=== PATIENT | female | born 1995 | race African-American/Black ===

== ENCOUNTER 2017-04-01 20:02 | Emergency (ER) | payer OTHER ==
[~2017-04-01] VITALS: Ht 172.7 cm; Wt 60.5 kg
[~2017-04-01 20:02] MED LIST: PENI500T PO; Z.0.BCPILL PO
[2017-04-01 20:04] VITALS: BP 113/75; PULSE 103; RESP 16; TEMP 99.8
[2017-04-01 20:17] VITALS: BP 127/73; PULSE 91; RESP 18; O2SAT 100
[2017-04-01] MEDS ORDERED: SODIUM CHLOR 0.9% 1000 ML INJ 1,000 ML IV SCH (20:22)
--- NOTE | 2017-04-01 20:29 | PD ---
HPI Chief Complaint: Abdominal Pain Time Seen by Provider: 20:25 Travel History International Travel<30 days: No Contact w/Intl Traveler<30days: No Traveled to known affect area: No History of Present Illness HPI 21-year-old female presents to the emergency department for evaluation of lower abdominal pain that started yesterday. She states that she has not had pain like this before. She denies any abnormal vaginal discharge. She denies risk of STDs. She denies urinary symptoms. Patient denies any previous abdominal surgeries. She has no chronic medical problems and takes no prescribed medications. Patient denies reporting last menstrual cycle ended 2 days ago. No chest pain or shortness of breath. No nausea, vomiting, diarrhea , constipation. Patient reports 1 sexual partner and has been with him for "a long time". PFSH Past Medical History Hx Anticoagulant Therapy: No Cardiovascular Problems: No Chemotherapy: No Cerebrovascular Accident: No Diabetes: No Respiratory: No ?: Not LMP: 03/30/2017 Past Surgical History Hysterectomy: No Social History Alcohol Use: No Tobacco Use: No Substance Use: No Allergies-Medications (Allergen,Severity, Reaction): Coded Allergies: No Known Allergies (Unverified , 04/01/17) Reported Meds & Prescriptions Reported Meds & Active Scripts Active Macrobid (Nitrofurantoin Monohydrate Macrocrystals) 100 Mg Capsule 100 Mg PO BID 7 Days Review of Systems Except as stated in HPI: all other systems reviewed are Neg Physical Exam Narrative GENERAL: Well-nourished, well-developed female patient, temp of 99.8. SKIN: Focused skin assessment warm/dry. HEAD: Normocephalic. Atraumatic. EYES: No scleral icterus. No injection or drainage. NECK: Supple, trachea midline. No JVD or lymphadenopathy. CARDIOVASCULAR: Regular rate and rhythm without murmurs, gallops, or rubs. RESPIRATORY: Breath sounds equal bilaterally. No accessory muscle use. Lungs sounds are clear to auscultation. GASTROINTESTINAL: Abdomen soft and nondistended. Patient has diffuse tenderness to palpation, worse in the right lower quadrant.. MUSCULOSKELETAL: No cyanosis, or edema. BACK: Nontender without obvious deformity. No CVA tenderness. GENITOURINARY: Normal external genitalia without lesions or erythema. Vaginal vault without blood, but with white drainage noted. Cervical os was closed without drainage. No cervical motion tenderness. Uterus nontender and nonenlarged. Bilateral adnexa nontender without masses. Exam was done with HERMINIO Cruz at bedside. Data Data Last Documented VS Vital Signs Date Time Temp Pulse Resp B/P Pulse Ox O2 Delivery O2 Flow Rate FiO2 04/01/17 20:33 100 Room Air 04/01/17 20:17 91 18 127/73 04/01/17 20:04 99.8 Orders Morphine Inj (Morphine Inj) (04/01/17 20:30) Complete Blood Count With Diff (04/01/17 20:22) Comprehensive Metabolic Panel (04/01/17 20:22) Lipase (04/01/17 20:22) Urinalysis - C+S If Indicated (04/01/17 20:22) Ct Abd/Pel W Iv Contrast(Rout) (04/01/17 20:22) Iv Access Insert/Monitor (04/01/17 20:22) Ecg Monitoring (04/01/17 20:22) Oximetry (04/01/17 20:22) Ondansetron Inj (Zofran Inj) (04/01/17 20:30) Sodium Chlor 0.9% 1000 Ml Inj (Ns 1000 M (04/01/17 20:22) Sodium Chloride 0.9% Flush (Ns Flush) (04/01/17 20:30) Ed Urine Pregnancytest Poc (04/01/17 20:22) Oral Contrast - Adult (04/01/17 20:22) Gc And Chlamydia Pcr (04/01/17 20:22) Wet Prep Profile (04/01/17 20:22) Diatrizoate Liq ( Gastroview Liq) (04/01/17 20:35) Urine Culture (04/01/17 20:31) Blood Culture (04/01/17 21:04) Lactic Acid Sepsis Protocol (04/01/17 21:04) Piperacil-Tazo 4.5 Gm Premix (Zosyn 4.5 (04/01/17 21:15) Iohexol 350 Inj (Omnipaque 350 Inj) (04/01/17 22:10) Azithromycin Powd Pack (Zithromax Powd P (04/01/17 22:45) Rocephin 250mg Vial Im X 1 (04/01/17 22:45) Lidocaine 1% Inj (50 Ml) (Xylocaine 1% I (04/01/17 22:45) Labs Laboratory Tests Test 04/01/17 04/01/17 20:31 21:15 White Blood Count 18.2 TH/MM3 Red Blood Count 4.41 MIL/MM3 Hemoglobin 12.8 GM/DL Hematocrit 37.9 % Mean Corpuscular Volume 85.9 FL Mean Corpuscular Hemoglobin 29.0 PG Mean Corpuscular Hemoglobin 33.7 % Concent Red Cell Distribution Width 13.7 % Platelet Count 272 TH/MM3 Mean Platelet Volume 7.2 FL Neutrophils (%) (Auto) 84.7 % Lymphocytes (%) (Auto) 8.0 % Monocytes (%) (Auto) 6.7 % Eosinophils (%) (Auto) 0.3 % Basophils (%) (Auto) 0.3 % Neutrophils # (Auto) 15.4 TH/MM3 Lymphocytes # (Auto) 1.5 TH/MM3 Monocytes # (Auto) 1.2 TH/MM3 Eosinophils # (Auto) 0.1 TH/MM3 Basophils # (Auto) 0.0 TH/MM3 CBC Comment DIFF FINAL Differential Comment Urine Color YELLOW Urine Turbidity HAZY Urine pH 6.5 Urine Specific [place] 1.026 Urine Protein 30 mg/dL Urine Glucose (UA) NEG mg/dL Urine Ketones NEG mg/dL Urine Occult Blood MOD Urine Nitrite NEG Urine Bilirubin NEG Urine Urobilinogen 4.0 MG/DL Urine Leukocyte Esterase LARGE Urine RBC 10 /hpf Urine WBC /hpf Urine Squamous Epithelial 18 /hpf Cells Urine Bacteria MOD /hpf Urine Mucus MANY /lpf Microscopic Urinalysis Comment CULTURE INDICATED Sodium Level 135 MEQ/L Potassium Level 3.7 MEQ/L Chloride Level 99 MEQ/L Carbon Dioxide Level 27.3 MEQ/L Anion Gap 9 MEQ/L Blood Urea Nitrogen 11 MG/DL Creatinine 1.03 MG/DL Estimat Glomerular Filtration 84 ML/MIN Rate Random Glucose 98 MG/DL Calcium Level 9.0 MG/DL Total Bilirubin 0.7 MG/DL Aspartate Amino Transf 16 U/L (AST/SGOT) Alanine Aminotransferase 16 U/L (ALT/SGPT) Alkaline Phosphatase 94 U/L Total Protein 8.4 GM/DL Albumin 3.8 GM/DL Lipase 132 U/L Clue Cells (Wet Prep) NONE SEEN Vaginal Trichomonas (Wet Prep) NONE SEEN Vaginal Yeast (Wet Prep) NONE SEEN Lactic Acid Level 1.6 mmol/L MDM Medical Decision Making Medical Screen Exam Complete: Yes Emergency Medical Condition: Yes Medical Record Reviewed: Yes Interpretation(s) CT abdomen/pelvis - CONCLUSION: 1. No acute intra-abdominal process. 2. Mild scoliosis of the lumbar spine. Differential Diagnosis Appendicitis versus TOA versus UTI versus pyelonephritis versus diverticulitis versus ovarian torsion versus vaginitis Narrative Course 21-year-old female presents to the emergency department for evaluation of lower abdominal pain that started yesterday. Urine test is negative. CBC, CMP, lipase, UA, wet prep profile, swab for chlamydia and gonorrhea are ordered and pending. CT abdomen/pelvis with by mouth and IV contrast is ordered and pending. Patient is given normal saline 1 L IV bolus, Zofran 4 mg IV, morphine 4 mg IV. Patient gives verbal consent for pelvic exam. CBC shows leukocytosis 18.2, neutrophilia 84.7. CMP shows no acute abnormality. Lipase is 132. UA shows large leukocyte esterase, 10 RBC, innumerable WBC, but 18 squamous cell epithelial. Wet prep profile is negative for clue cells, trichomonas, yeast. CT abdomen/pelvis shows no acute intra- abdominal process; Mild scoliosis of the lumbar spine. Blood cultures and lactic acid are ordered and pending. Lactic acid is 1.6. On re-examination, patient has mild suprapubic tenderness to palpation. She will be treated for chlamydia/gonorrhea with Rocephin 250 mg IM and Azithromycin 1 GM PO. She will be discharged with a prescription for Macrobid for UTI. Patient is instructed to return for any acute, worsening of symptoms. Diagnosis Primary Impression: Urinary tract infection Qualified Code: N30.01 - Acute cystitis with hematuria Additional Impressions: Vaginitis Qualified Code: N76.0 - Acute vaginitis Pelvic pain Referrals: Primary Care Physician call for appointment Patient Instructions: General Instructions, Urinary Tract Infection in Women ( ED), Vaginitis (ED) Additional Instructions: Take Macrobid as directed until gone. Take tramadol as directed as needed for pain. Caution this can be drowsy so do not drive after taking. Follow-up with your primary care physician. Return to the emergency department for any acute worsening of symptoms. Med/Other Pt SpecificInfo: Prescription(s) given Scripts Tramadol 50 Mg Tab50 Mg PO Q6H PRN (PAIN) #12 TAB Ref 0 Prov:Surya Byrd MD 04/01/17 Nitrofurantoin Monohydrate Macrocrystals (Macrobid)100 Mg [id number] Mg PO BID 7 Days Ref 0 Prov:Adilene Dumont 04/01/17 Disposition: 01 DISCHARGE HOME Condition: Stable Adilene Dumont April 01, 2017 20:29
[2017-04-01] MEDS ORDERED: ONDANSETRON HCL 4 MG/2 ML VIAL IVP ONE (20:30)
[2017-04-01] MEDS ORDERED: SODIUM CHLORIDE 0.9% FLUSH 10 ML FLUSH IV FLUSH PRN (20:30)
[2017-04-01] MEDS ORDERED: MORPHINE SULFATE 4 MG/ML INJ IV PUSH ONE (20:30)
[2017-04-01 20:33] VITALS: O2SAT 100
[2017-04-01] MEDS ORDERED: DIATRIZOATE MEGLUM/DIATRIZOATE SOD 9 ML CUP ONE (20:35)
[2017-04-01 20:40] LABS: AUTOMATED NEUTROPHIL # 15.4 TH/MM3 (1.8-7.7); BASOPHIL % 0.3 % (0.0-2.0); EOSINOPHIL # 0.1 TH/MM3 (0-0.4); EOSINOPHIL % 0.3 % (0.0-4.0); HEMATOCRIT 37.9 % (35.0-46.0); HEMO FLAGS DIFF FINAL; LYMPHOCYTE # 1.5 TH/MM3 (1.0-4.8); MEAN CELL VOLUME 85.9 FL (80.0-100.0); MEAN CORPUSCULAR HGB CONC 33.7 % (32.0-36.0); MONO % 6.7 % (0.0-8.0); NEUT % 84.7 % (16.0-70.0); PLATELET COUNT 272 TH/MM3 (150-450); RED BLOOD COUNT 4.41 MIL/MM3 (4.00-5.30); RED CELL DISTRIBUTION WIDTH 13.7 % (11.6-17.2); WHITE BLOOD COUNT 18.2 TH/MM3 (4.0-11.0)
[2017-04-01 20:47] LABS: BACTERIA, URINE MOD /hpf; BLOOD, URINE MOD (NEG); COMMENT (UR) CULTURE INDICATED; CULTURE IF INDICATED CULTURE INDICATED; GLUCOSE,URINE NEG (NEG); KETONE, URINE NEG (NEG); MUCUS URINE MANY /lpf (OCC); NITRITE,URINE NEG (NEG); PH, URINE 6.5 (5.0-8.5); SQUAMOUS EPITHELIAL CELL URINE 18 /hpf (0-5); URINE COLOR YELLOW (YELLW/STRAW)
[2017-04-01 21:09] LABS: ANION GAP 9 MEQ/L (5-15); AST (GOT) 16 U/L (16-38); BICARBONATE 27.3 MEQ/L (21.0-32.0); BLOOD UREA NITROGEN 11 MG/DL (7-18); CHLORIDE 99 MEQ/L (98-107); GLOMERULAR FILTRATION RATE 84 ML/MIN (>89); POTASSIUM 3.7 MEQ/L (3.5-5.1); SODIUM (NA) 135 MEQ/L (136-145)
[2017-04-01 21:12] LABS: ALKALINE PHOSPHATASE 94 U/L (45-117); ALT (GPT) 16 U/L (9-42); TOTAL BILIRUBIN ADULT 0.7 MG/DL (0.2-1.0)
[2017-04-01] MEDS ORDERED: PIPERACIL-TAZO 4.5 GM PREMIX 100 ML IV ONE (21:15)
[2017-04-01] MEDS ORDERED: IOHEXOL 350 MG/ML 10 ML VIAL (for RAD DIAG) IV ONE (22:10)
--- NOTE | 2017-04-01 22:21 | RADRPT ---
EXAM DATE/TIME: 04/01/2017 21:59 [facility] COMPARISON: No previous studies available for comparison. INDICATIONS : Lower abdomen pain. IV CONTRAST: 80 cc Omnipaque 350 (iohexol) IV ORAL CONTRAST: Prescribed oral contrast ingested. RADIATION DOSE: 5.54 CTDIvol (mGy) MEDICAL HISTORY : None SURGICAL HISTORY : None. ENCOUNTER: Initial ACUITY: 1 day PAIN SCALE: 6/10 LOCATION: Bilateral low abdomen TECHNIQUE: Volumetric scanning of the abdomen and pelvis was performed. Using automated exposure control and ad justment of the mA and/or kV according to patient size, radiation dose was kept as low as reasonably achievable to obtain optimal diagnostic quality images. FINDINGS: LOWER LUNGS: The visualized lower lungs are clear. LIVER: Homogeneous density without lesion. There is no dilation of the biliary tree. No calcified gallston es. SPLEEN: Normal size without lesion. PANCREAS: Within normal limits. KIDNEYS: Normal in size and shape. There is no mass, stone or hydronephrosis. ADRENAL GLANDS: Within normal limits. VASCULAR: There is no aortic aneurysm. BOWEL/MESENTERY: The stomach, small bowel, and colon demonstrate no acute abnormality. There is no free intraperitone al air or fluid. ABDOMINAL WALL: Within normal limits. RETROPERITONEUM: There is no lymphadenopathy. BLADDER: No wall thickening or mass. REPRODUCTIVE: Within normal limits. INGUINAL: There is no lymphadenopathy or hernia. MUSCULOSKELETAL: Mild scoliosis of the lumbar spine is noted. CONCLUSION: 1. No acute intra-abdominal process. 2. Mild scoliosis of the lumbar spine. Williams Crowe MD on April 01, 2017 at 22:17 Board Certified Radiologist. This report was verified electronically.
[2017-04-01] MEDS ORDERED: MACR100C2 PO (22:43)
[2017-04-01] MEDS ORDERED: cefTRIAXone 250 MG VIAL IM ONE (22:45)
[2017-04-01] MEDS ORDERED: TRAM50TA PO (22:45)
[2017-04-01] MEDS ORDERED: AZITHROMYCIN PWD FOR SUSP 1 GM PACKET PO ONE (22:45)
[2017-04-01] MEDS ORDERED: LIDOCAINE HCL 1% 50 ML VIAL IM ONE (22:45)
[2017-04-01 23:51] LABS: CHLAMYDIA PCR NOT DETECTED (NOT DETECT); NEISSERIA PCR DETECTED (NOT DETECT)
== END 2017-04-01 23:25 | disposition home or self-care (01) ==
LOC: NEPD 20:02
DX: N30.01 Acute cystitis with hematuria (principal); N76.0 Acute vaginitis; R10.2 Pelvic and perineal pain; B95.1 Streptococcus, group B, as the cause of diseases classified elsewhere
CPT/HCPCS: 74177; 80053; 81001; 83605; 83690; 84703; 85025; 86403; 87040; 87086; 87210; 87491; 87591; 96361; 96365; 96372; 96375; 99285; J0696; J2270; J2405; J2543; J7030; Q9963; Q9967

== ENCOUNTER 2017-11-05 20:20 | Emergency (ER) | payer OTHER ==
[~2017-11-05] VITALS: Ht 172.7 cm; Wt 64.5 kg
[~2017-11-05 20:20] MED LIST changes: +MACR100C2 PO; -PENI500T PO; +TRAM50TA PO; -Z.0.BCPILL PO
[2017-11-05 20:23] VITALS: BP 138/85; PULSE 83; RESP 16; TEMP 97.5; O2SAT 99
[2017-11-05 20:52] LABS: AMORPHOUS SEDIMENT, URINE RARE; BILIRUBIN, URINE NEG (NEG); BLOOD, URINE NEG (NEG); GLUCOSE,URINE NEG (NEG); KETONE, URINE NEG (NEG); MUCUS URINE FEW /lpf (OCC); NITRITE,URINE NEG (NEG); SQUAMOUS EPITHELIAL CELL URINE 4 /hpf (0-5); URINE COLOR YELLOW (YELLW/STRAW); URINE LEUKOCYTE ESTERASE LARGE (NEG)
[2017-11-05] MEDS ORDERED: LIDOCAINE HCL 1% 50 ML VIAL IM ONE (22:30)
[2017-11-05] MEDS ORDERED: cefTRIAXone 250 MG VIAL IM ONE (22:30)
[2017-11-05] MEDS ORDERED: AZITHROMYCIN PWD FOR SUSP 1 GM PACKET PO ONE (22:30)
--- NOTE | 2017-11-05 22:35 | PD ---
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 She also states that she had some upper abdominal pain approximately 1-2 weeks ago but that did resolve. She has been late on her period. Her last menstrual cycle was a little over one month ago. (10/04/17). Patient denies any fever or chills. No nausea vomiting. No abdominal pain now. No back pain. Symptoms are mild. PFSH Past Medical History Medical History: Denies Significant Hx Hx Anticoagulant Therapy: No Cardiovascular Problems: No Chemotherapy: No Cerebrovascular Accident: No Diabetes: No Respiratory: No Tetanus Vaccination: < 5 Years Influenza Vaccination: No ?: Unknown LMP: 10/04/2017 Past Surgical History Surgical History: No Previous Surgery Hysterectomy: No Social History Alcohol Use: No Tobacco Use: No Substance Use: No Allergies-Medications (Allergen,Severity, Reaction): Coded Allergies: No Known Allergies (Unverified Allergy, Unknown, 11/05/17) Reported Meds & Prescriptions Reported Meds & Active Scripts Active Monistat 3 Vaginal Cream (Miconazole 3 Vaginal Cream) 4 % Cream 1 Appl VAGINAL HS Metrogel Vaginal Gel (Metronidazole Vaginal Gel) 0.75 % Gel 1 Appl VAGINAL HS Keflex (Cephalexin) 500 Mg Cap 1,000 Mg PO Q12H 5 Days Tramadol (Tramadol HCl) 50 Mg Tab 50 Mg PO Q6H PRN Macrobid (Nitrofurantoin Monohydrate Macrocrystals) 100 Mg Capsule 100 Mg PO BID 7 Days Review of Systems General / Constitutional: No: Fever Eyes: No: Visual changes HENT: No: Headaches Cardiovascular: No: Chest Pain or Discomfort Respiratory: No: Shortness of Breath Gastrointestinal: No: Abdominal Pain Genitourinary: Positive: Urgency, Frequency, Dysuria, Discharge, No: Hematuria , Pelvic Pain, Vaginal Bleeding (beige) Musculoskeletal: No: Pain Skin: No Rash Neurologic: No: Weakness Psychiatric: No: Depression Endocrine: No: Polydipsia Hematologic/Lymphatic: No: Easy Bruising Physical Exam Narrative GENERAL: Well-developed, well-nourished in no acute distress. Nontoxic appearing. HEAD: Normocephalic, atraumatic. EYES: Pupils equal round and reactive. Extraocular motions intact. No scleral icterus. No injection or drainage. ENT: TMs clear without erythema. The external auditory canals clear. Nose: clear . Posterior pharynx is pink and moist. No tonsillar edema or exudate. Uvula midline. Airway patent. NECK: Trachea midline.Supple, nontender, moves head freely. No central bony tenderness or spasm. CARDIOVASCULAR: Regular rate and rhythm without murmurs, gallops, or rubs. RESPIRATORY: Clear to auscultation. Breath sounds equal bilaterally. No wheezes , rales, or rhonchi. GASTROINTESTINAL: Abdomen soft, non-tender, nondistended. No hepato-splenomegaly , or palpable masses. No guarding. EXTREMITIES: No clubbing, cyanosis, or edema. No joint tenderness, effusion, or edema noted. BACK: Nontender without deformity or crepitance. No flank tenderness. Data Data Last Documented VS Vital Signs Date Time Temp Pulse Resp B/P (MAP) Pulse Ox O2 Delivery O2 Flow Rate FiO2 11/05/17 23:57 11/05/17 20:23 97.5 83 16 99 Orders Orders Ed Urine Pregnancytest Poc (11/05/17 20:28) Urinalysis - C+S If Indicated (11/05/17 20:28) Beta Hcg (Quant/Titer) (11/05/17 22:29) Complete Blood Count With Diff (11/05/17 22:29) Basic Metabolic Panel (Bmp) (11/05/17 22:29) Gc And Chlamydia Pcr (11/05/17 22:29) Complete Rh (11/05/17 22:29) Wet Prep Profile (11/05/17 22:29) Iv Access Insert/Monitor (11/05/17 22:29) Azithromycin Powd Pack (Zithromax Powd P (11/05/17 22:30) Ceftriaxone Inj (Rocephin Inj) (11/05/17 22:30) Us Pelvis (Ques Pr/Ect)W Trans (11/05/17 ) Non-Formulary Drug (11/05/17 23:45) Ed Discharge Order (11/05/17 23:57) Labs Laboratory Tests Test 1/2/18 20:42 11/05/17 22:50 11/05/17 23:20 Urine Color YELLOW Urine Turbidity HAZY Urine pH 6.0 Urine Specific [place] 1.032 Urine Protein TRACE mg/dL Urine Glucose (UA) NEG mg/dL Urine Ketones NEG mg/dL Urine Occult Blood NEG Urine Nitrite NEG Urine Bilirubin NEG Urine Urobilinogen 2.0 MG/DL Urine Leukocyte Esterase LARGE Urine RBC 2 /hpf Urine WBC 4 /hpf Urine Squamous Epithelial Cells 4 /hpf Urine Amorphous Sediment RARE Urine Mucus FEW /lpf Microscopic Urinalysis Comment CULT NOT INDICATED White Blood Count 7.6 TH/MM3 Red Blood Count 4.23 MIL/MM3 Hemoglobin 12.9 GM/DL Hematocrit 36.9 % Mean Corpuscular Volume 87.2 FL Mean Corpuscular Hemoglobin 30.5 PG Mean Corpuscular Hemoglobin Concent 35.0 % Red Cell Distribution Width 14.5 % Platelet Count 256 TH/MM3 Mean Platelet Volume 7.1 FL Neutrophils (%) (Auto) 50.0 % Lymphocytes (%) (Auto) 40.3 % Monocytes (%) (Auto) 8.3 % Eosinophils (%) (Auto) 0.9 % Basophils (%) (Auto) 0.5 % Neutrophils # (Auto) 3.8 TH/MM3 Lymphocytes # (Auto) 3.1 TH/MM3 Monocytes # (Auto) 0.6 TH/MM3 Eosinophils # (Auto) 0.1 TH/MM3 Basophils # (Auto) 0.0 TH/MM3 CBC Comment DIFF FINAL Differential Comment Blood Urea Nitrogen 14 MG/DL Creatinine 0.81 MG/DL Random Glucose 88 MG/DL Calcium Level 8.7 MG/DL Sodium Level 137 MEQ/L Potassium Level 4.2 MEQ/L Chloride Level 103 MEQ/L Carbon Dioxide Level 25.6 MEQ/L Anion Gap 8 MEQ/L Estimat Glomerular Filtration Rate 110 ML/MIN Human Chorionic Gonadotropin, Quant 2306 MIU/ML Clue Cells (Wet Prep) PRESENT Vaginal Trichomonas (Wet Prep) NONE SEEN Vaginal Yeast (Wet Prep) PRESENT MDM Medical Decision Making Medical Screen Exam Complete: Yes Emergency Medical Condition: Yes Medical Record Reviewed: Yes Interpretation(s) Pelvic ultrasound:1. Tiny gestational sac within the uterus. The sac is too small and below the threshold for accurate gestational age by ultrasound. Laboratory Tests Test 11/05/17 20:42 11/05/17 22:50 11/05/17 23:20 Urine Color YELLOW Urine Turbidity HAZY Urine pH 6.0 Urine Specific [place] 1.032 Urine Protein TRACE mg/dL Urine Glucose (UA) NEG mg/dL Urine Ketones NEG mg/dL Urine Occult Blood NEG Urine Nitrite NEG Urine Bilirubin NEG Urine Urobilinogen 2.0 MG/DL Urine Leukocyte Esterase LARGE Urine RBC 2 /hpf Urine WBC 4 /hpf Urine Squamous Epithelial Cells 4 /hpf Urine Amorphous Sediment RARE Urine Mucus FEW /lpf Microscopic Urinalysis Comment CULT NOT INDICATED White Blood Count 7.6 TH/MM3 Red Blood Count 4.23 MIL/MM3 Hemoglobin 12.9 GM/DL Hematocrit 36.9 % Mean Corpuscular Volume 87.2 FL Mean Corpuscular Hemoglobin 30.5 PG Mean Corpuscular Hemoglobin Concent 35.0 % Red Cell Distribution Width 14.5 % Platelet Count 256 TH/MM3 Mean Platelet Volume 7.1 FL Neutrophils (%) (Auto) 50.0 % Lymphocytes (%) (Auto) 40.3 % Monocytes (%) (Auto) 8.3 % Eosinophils (%) (Auto) 0.9 % Basophils (%) (Auto) 0.5 % Neutrophils # (Auto) 3.8 TH/MM3 Lymphocytes # (Auto) 3.1 TH/MM3 Monocytes # (Auto) 0.6 TH/MM3 Eosinophils # (Auto) 0.1 TH/MM3 Basophils # (Auto) 0.0 TH/MM3 CBC Comment DIFF FINAL Differential Comment Blood Urea Nitrogen 14 MG/DL Creatinine 0.81 MG/DL Random Glucose 88 MG/DL Calcium Level 8.7 MG/DL Sodium Level 137 MEQ/L Potassium Level 4.2 MEQ/L Chloride Level 103 MEQ/L Carbon Dioxide Level 25.6 MEQ/L Anion Gap 8 MEQ/L Estimat Glomerular Filtration Rate 110 ML/MIN Human Chorionic Gonadotropin, Quant 2306 MIU/ML Clue Cells (Wet Prep) PRESENT Vaginal Trichomonas (Wet Prep) NONE SEEN Vaginal Yeast (Wet Prep) PRESENT Differential Diagnosis Differential diagnoses: , ectopic , STD, UTI Narrative Course IV access is obtained. Routine laboratory tests sent for analysis including CBC , chemistry, ABO Rh, UA and quantitative hCG. Patient's urine was positive. Ultrasound of the pelvis for rule out ectopic. Patient laboratory just a very reviewed. Patient's ultrasound shows a sac but no pole but this is very early pricey. Patient's quantitative beta-hCG is only over 1999. This will be followed. Patient's exam is reassuring. She has no pain on exam. She does have some yeast and clue cells. She'll be placed on MetroGel, Monistat and Keflex for a possible developing UTI. Early , bacterial vaginosis, yeast vaginosis, early UTI Procedures Procedure Narrative GENITOURINARY: Normal external genitalia without lesions or erythema. Vaginal vault without blood small amount of thick white drainage. Cervical os was closed without drainage. No cervical motion tenderness. Uterus 6 cm. Bilateral adnexa nontender without masses. Cr the nurses present during the exam Diagnosis Primary Impression: Early stage of Additional Impressions: bacterial vaginosis Bacterial vaginosis yeast vaginosis UTI Referrals: Darnell Mccloud MD 3 days Patient Instructions: General Instructions Additional Instructions: Rest. Increase fluids. Medications as directed. Follow-up with Dr. Mccloud in the next 3-5 days. Return to the ER if any problems. Med/Other Pt SpecificInfo: Prescription(s) given Scripts Miconazole 3 Vaginal Cream (Monistat 3 Vaginal Cream) 4 % Cream 1 APPL VAGINAL HS for Infection, #1 BOX 0 Refills Prov: Eileen Houston MD 11/05/17 Metronidazole Vaginal Gel (Metrogel Vaginal Gel) 0.75 % Gel 1 APPL VAGINAL HS for Infection, #1 TUBE 0 Refills Prov: Eileen Houston MD 11/05/17 Cephalexin (Keflex) 500 Mg Cap 1000 MG PO Q12H for Infection for 5 Days, #20 CAP 0 Refills Prov: Eileen Houston MD 11/05/17 Disposition: 01 DISCHARGE HOME Condition: Stable Rufino Us Nov 05, 2017 22:35
[2017-11-05 22:58] LABS: AUTOMATED NEUTROPHIL # 3.8 TH/MM3 (1.8-7.7); BASOPHIL % 0.5 % (0.0-2.0); EOSINOPHIL # 0.1 TH/MM3 (0-0.4); EOSINOPHIL % 0.9 % (0.0-4.0); HEMATOCRIT 36.9 % (35.0-46.0); HEMOGLOBIN 12.9 GM/DL (11.6-15.3); LYMPH % 40.3 % (9.0-44.0); LYMPHOCYTE # 3.1 TH/MM3 (1.0-4.8); MEAN CELL VOLUME 87.2 FL (80.0-100.0); MEAN CORPUSCULAR HEMOGLOBIN 30.5 PG (27.0-34.0); MEAN PLATELET VOLUME 7.1 FL (7.0-11.0); MONO % 8.3 % (0.0-8.0); MONOCYTE # 0.6 TH/MM3 (0-0.9); PLATELET COUNT 256 TH/MM3 (150-450); RED BLOOD COUNT 4.23 MIL/MM3 (4.00-5.30); RED CELL DISTRIBUTION WIDTH 14.5 % (11.6-17.2); WHITE BLOOD COUNT 7.6 TH/MM3 (4.0-11.0)
[2017-11-05 23:15] LABS: BICARBONATE 25.6 MEQ/L (21.0-32.0); CALCIUM 8.7 MG/DL (8.5-10.1); CREATININE 0.81 MG/DL (0.50-1.00)
[2017-11-05] MEDS ORDERED: NON-FORMULARY DRUG IM ONE (23:45)
--- NOTE | 2017-11-05 23:47 | RADRPT ---
EXAM DATE/TIME: 11/05/2017 22:58 [facility] COMPARISON: No previous studies available for comparison. INDICATIONS : Pelvic pain with . LAB(S): Beta-hC MEDICAL HISTORY : . SURGICAL HISTORY : None. ENCOUNTER: Initial ACUITY: 1 day PAIN SCORE: 6/10 LOCATION: Bilateral pelvis MEASUREMENTS: UTERUS: 9.3 x 5.6 x 4.4 cm ENDOMETRIAL STRIPE: 16 mm RIGHT OVARY: 4.3 x 2.4 x 3.0 cm LEFT OVARY: 2.1 x 1.9 x 1.0 cm FREE FLUID: Yes Trace in posterior cul de sac. CROWN RUMP LENGTH: Non visualized. = WKS DAYS FHR: Non visualized. BPM FINDINGS: UTERUS: Myometrium is homogeneous. There is a thickened endometrial stripe. A tiny cystic structure is seen l ikely relating to a gestational sac. Mean sac diameter is 0.5 cm which below the threshold for accura te gestational age. No yolk sac or pole. RIGHT OVARY: A 2.2 cm thick walled cystic structure seen involving the right ovary. There is posterior acoustical enhancement. No hyperemia. Right ovary is otherwise unremarkable. LEFT OVARY: Ovary contains no mass or significant cystic lesion. MISCELLANEOUS: No free fluid. CONCLUSION: 1. Tiny gestational sac within the uterus. The sac is too small and below the threshold for accurate gestational age by ultrasound. 2. 2.2 cm complex cyst involving the right ovary likely related to corpus luteal cyst. Drew Bonilla Jr., MD on November 05, 2017 at 23:42 Board Certified Radiologist. This report was verified electronically.
[2017-11-05] MEDS ORDERED: CEPH-460 PO (23:56)
[2017-11-05] MEDS ORDERED: METR0.7528 VAGINAL (23:56)
[2017-11-05] MEDS ORDERED: MICO1CRE2 VAGINAL (23:56)
== END 2017-11-06 00:23 | disposition home or self-care (01) ==
LOC: NEPD 20:20
DX: O23.591 Infection of other part of genital tract in pregnancy, first trimester (principal); N76.0 Acute vaginitis; O98.811 Other maternal infectious and parasitic diseases complicating pregnancy, first trimester; B37.3 Candidiasis of vulva and vagina; O23.41 Unspecified infection of urinary tract in pregnancy, first trimester; B96.89 Other specified bacterial agents as the cause of diseases classified elsewhere; Z3A.00 Weeks of gestation of pregnancy not specified
CPT/HCPCS: 76700; 76817; 80048; 81001; 84702; 84703; 85025; 86901; 87210; 87491; 87591; 96372; 99285; J0696